=== PATIENT | female | born 1995 | race Caucasian/White ===

== ENCOUNTER 2021-02-01 01:49 | Emergency (ER) | payer OTHER ==
[~2021-02-01] VITALS: Ht 165.1 cm; Wt 54.4 kg
[2021-02-01 01:52] VITALS: BP 102/76
[2021-02-01 02:15] VITALS: BP 102/76
--- NOTE | 2021-02-01 02:15 | NUR ---
PATIENT BIB [facility]ICE [facility]. PATIENT EXAMINED BY DR. DALEY. PATIENT MEDICALLY CLEARED AND RELEASED IN CUSTODY IN STABLE CONDITION. ORIGINAL PRE-BOOK FORM GIVEN TO OFFICER [id number].
== END 2021-02-01 02:15 | disposition home or self-care (01) ==
LOC: MED 01:49
DX: Z02.89 Encounter for other administrative examinations (principal); Z04.1 Encounter for examination and observation following transport accident
CPT/HCPCS: 99283